=== PATIENT | female | born 1960 | race Caucasian/White ===

== ENCOUNTER 2018-02-07 09:00 | Inpatient (IN) | payer OTHER ==
[2018-02-21] MEDS ORDERED: LR 1,000 ML IV ONE (06:03)
[2018-02-21] MEDS ORDERED: BUPIVACAINE/EPI 0.5% 30 ML SDV ONE (06:38)
[2018-02-21] MEDS ORDERED: SURGIFLO MATRIX KIT WITH THROMBIN 8 ML TP ONE (06:38)
[2018-02-21] MEDS ORDERED: BACITRACIN 50,000 UNITS/10 ML SYR IRR ONE (06:39)
[2018-02-21] MEDS ORDERED: ceFAZolin 2 GM/DEXTROSE 100 ML IV ONE (06:46)
[2018-02-21] MEDS ORDERED: GABAPENTIN 300 MG CAP PO ONE (06:46)
[2018-02-21] MEDS ORDERED: ACETAMINOPHEN 500 MG TAB PO ONE (06:46)
[2018-02-21] MEDS ORDERED: TRANEXAMIC ACID 1,000 MG in NS 100 ML IV ONE (06:46)
--- NOTE | 2018-02-21 06:48 | PDHPUP ---
History & Physical Update H&P update statement: This history and physical update is based on an assessment of the patient which was completed after admission or registration (within 24 hours), but prior to the surgery/procedure. H&P update: H&P reviewed & patient examined, no change in patient's condition since H&P completed
[2018-02-21] MEDS ORDERED: MIDAZOLAM 2 MG/2 ML VIAL IVP ONE (06:54)
--- NOTE | 2018-02-21 06:54 | PDANEPAE ---
ANE History of Present Illness Mainly left sided flank pain ANE Past Medical History - Cardiovascular History Hx Hypertension: Yes Hx Arrhythmias: No Hx Chest Pain: No Hx Coronary Artery / Peripheral Vascular Disease: No Hx CHF / Valvular Disease: No Hx Palpitations: No - Pulmonary History Hx COPD: No Hx Asthma/Reactive Airway Disease: Yes Hx Recent Upper Respiratory Infection: No Hx Oxygen in Use at Home: No Hx Sleep Apnea: No Sleep Apnea Screening Result - Last Documented: Positive Pulmonary History Comment: allergies trigger asthma - Neurologic History Hx Cerebrovascular Accident: No Hx Seizures: No Hx Dementia: No - Endocrine History Hx Diabetes: No - Renal History Hx Renal Disorders: No - Liver History Hx Hepatic Disorders: No - Neurological & Psychiatric Hx Hx Neurological and Psychiatric Disorders: No - Cancer History Hx Cancer: No - Congenital Disorder History Hx Congenital Disorders: No - GI History Hx Gastrointestinal Disorders: Yes Gastrointestinal History Comment: reflux - Other Health History Other Health History: none - Chronic Pain History Chronic Pain: Yes (lower back) - Surgical History Prior Surgeries: none ANE Review of Systems Review of Systems: - Exercise capacity METS (RN): 4 METS - Systems Respiratory: Reports: other (asthma, takes advair inhaler 2x daily) ANE Patient History - Allergies Allergies/Adverse Reactions: No Known Allergies Allergy (Verified 01/24/18 13:20) - Home Medications Home medications: home medication list seen and reviewed Home Medications: Fluticasone/Salmeter 250/50Mcg [Advair 250/50 (*)] 1 puffs IH BID 01/24/18 [ Last Taken 02/20/18] Hydrochlorothiazide [HCTZ (*)] 25 mg PO DAILY 01/24/18 [Last Taken 02/21/18] Ibuprofen [Motrin (*)] 200 mg PO DAILY PRN 01/24/18 [Last Taken 1 Week Ago ~04/30] Levothyroxine [Synthroid 50 mcg (*)] 50 mcg PO DAILY06 01/24/18 [Last Taken 11/30] Losartan Potassium 100 mg PO DAILY 01/24/18 [Last Taken 02/20/18] Magnesium Oxide [Magnesium Oxide 400 mg (*)] 400 mg PO HS 01/24/18 [Last Taken 2 Days Ago ~02/19/18] Metoprolol Succinate Xr [Toprol Xl 50 mg (*)] 50 mg PO DAILY 01/24/18 [Last Taken 02/21/18] Multivitamins [Multivitamin (*)] 1 each PO DAILY 01/24/18 [Last Taken 02/20/18] - NPO status NPO Status: no food or drink >8 hours NPO Since - Liquids (Date): 02/20/18 NPO Since - Liquids (Time): 21:00 NPO Since - Solids (Date): 02/20/18 NPO Since - Solids (Time): 21:00 - Anes Hx Anes Hx: no prior problems (no prior GA, previously had spinal anesthetic ) - Smoking Hx Smoking Status: Never smoked - Family Anes Hx Family Hx Anesthesia Complications: none ANE Labs/Vital Signs - Vital Signs Blood Pressure: 157/99 Heart Rate: 83 Respiratory Rate: 14 O2 Sat (%): 92 Height: 162.56 cm Weight: 70.307 kg ANE Physical Exam - Airway Neck exam: FROM Mallampati Score: Class 1 Mouth exam: normal dental/mouth exam - Pulmonary Pulmonary: no respiratory distress - Cardiovascular Cardiovascular: regular rate and rhythym - ASA Status ASA Status: II ANE Anesthesia Plan Anesthesia Plan: general endotracheal anesthesia (planned remifentanil and propofol infusion with volatile, no NMB due to neuromonitoring, scopolamine patch given in preop for Hx motion sickness and risk of PONV)
[2018-02-21] MEDS ORDERED: MIDAZOLAM 2 MG/2 ML VIAL ONE (06:55)
[2018-02-21] MEDS ORDERED: SCOPOLAMINE HYDROBROMIDE 1 MG/3 DAYS PATCH TD ONE (06:55)
[2018-02-21] MEDS ORDERED: SCOPOLAMINE HYDROBROMIDE 1 MG/3 DAYS PATCH TD SCH (07:00)
[2018-02-21] MEDS ORDERED: PROPOFOL 200 MG/20 ML VIAL ONE (07:05)
[2018-02-21] MEDS ORDERED: fentaNYL 100 MCG/2 ML INJ ONE ×2 (07:05→10:04)
[2018-02-21] MEDS ORDERED: PROPOFOL/EMULSION 500 MG/50 ML BOTTLE IV ONE (07:05)
[2018-02-21] MEDS ORDERED: REMIFENTANIL HCL 1 MG VIAL ONE (07:05)
[2018-02-21] MEDS ORDERED: DEXAMETHASONE 4 MG/ML VIAL ONE (07:47)
[2018-02-21] MEDS ORDERED: ROCURONIUM 50 MG/5 ML VIAL ONE (07:48)
[2018-02-21] MEDS ORDERED: LIDOCAINE 2% 5 ML SDV ONE (07:48)
[2018-02-21] MEDS ORDERED: ePHEDrine SULFATE 25 MG/5 ML SYR ONE (08:58)
[2018-02-21] MEDS ORDERED: ONDANSETRON 4 MG/2 ML VIAL IVP PRN ×2 (09:20→10:16)
[2018-02-21] MEDS ORDERED: PROMETHAZINE HCL 25 MG/ML INJ IVP PRN (09:20)
[2018-02-21] MEDS ORDERED: NALOXONE HCL 0.4 MG/ML INJ IVP PRN (09:20)
[2018-02-21] MEDS: fentaNYL 100 MCG/2 ML INJ IVP PRN ×2 (10:06→10:12)
--- NOTE | 2018-02-21 10:07 | POSTANESTH ---
Post Anesthetic Evaluation Cardiovascular Status: Similar to Pre-Op Cond Respiratory Status: Similar to Pre-op Cond. Level of Consciousness/Mental Status: Alert and Oriented Pain Control: Adequate, Prn Tx Ordered Nausea/Vomiting Control: Adequate, Prn Tx Ordered Complications Possibly Related to Anesthesia: None Noted
[2018-02-21] MEDS ORDERED: BISACODYL 10 MG SUPP PR PRN (10:16)
[2018-02-21] MEDS ORDERED: LACTULOSE 20 GM/30 ML UDCUP PO PRN (10:16)
[2018-02-21] MEDS ORDERED: MAGNESIUM HYDROXIDE 30 ML UDCUP PO PRN (10:16)
[2018-02-21] MEDS ORDERED: ONDANSETRON DISINTEGRATING 4 MG TAB PO PRN (10:16)
[2018-02-21] MEDS ORDERED: diphenhydrAMINE 25 MG CAP PO PRN (10:16)
[2018-02-21] MEDS ORDERED: POLYETHYLENE GLYCOL 3350 17 GM PKT PO PRN (10:16)
[2018-02-21] MEDS ORDERED: HYDROmorphONE/DILAUDID 2 MG/ML INJ ONE (10:19)
[2018-02-21] MEDS: HYDROmorphONE/DILAUDID 2 MG/ML INJ IVP PRN ×2 (10:24→10:42)
--- NOTE | 2018-02-21 10:27 | SUROPNOTE ---
[facility] Operative Report - Surgery Date: 02/21/18 Pre-operative Diagnoses: L4/5 Degenerative disc disease and spondylosis L4/5 Degenerative spondylolisthesis Bilateral L4/5 pars insufficiency fractures Lumbar spinal stenosis Post-operative Diagnosis: Same Procedures: Lt L4/5 Minimally invasive extreme lateral interbody fusion (XLIF) L4/5 Anterior column plate and screw fixation Rt L4/5 Minimally Invasive Posterior Lumbar Fusion with Instrumentation Reduction of bilateral L4 pars insufficiency fractures Structural use of allograft Use of intra-operative fluoroscopy Use of intra-operative neuromonitoring, including MEP, EMG and SSEP modalities Surgeon: Juan Briceno MD Assist: Saranya Rojas Anesthesia: General endotracheal anesthesia Findings: As expected spondylolisthesis, spinal stenosis, facet hypertrophy Estimated Blood Loss: 20mL Drains: None Specimens: None Complications: None Condition: Transferred to PACU in stable condition Implants: NuVasive XLIF Cage: 8mm x 10deg x 16 Anterior Column Plate: Modulus cage-incorporated plate Anterior Screws: 50mm x 1 Posterior Pedicle Screws: 6.5mm x 45mm x2 Fernando: 35mm Allograft: 5mL allograft used structurally in the disc space and interbody cage Indications: This patient was seen in my office and diagnosed with degenerative spondylolisthesis and spinal stenosis. I have explained all options of treatment for the patient, and the patient has elected to proceed with operative management. I have explained all risks, benefits, and alternatives of the proposed procedure. The risks that we have discussed include , blindness, nerve damage, infection, dural tear, failure of surgery to alleviate pre-operative symptoms, nonunion, and possible need for further operation. I explained separately the risks of allograft, including infection and disease transfer. I specifically discussed the additional risks of XLIF, including but not limited to vascular damage, femoral nerve radiculopathy, or weakness. In addition to the aforementioned procedure, I discussed with the patient that other procedures may be indicated during the course of surgery that would be considered in the patients best interest. The patient expressed understanding of this and agreed to move forward with operative management. Pre-operative: The proposed incision lateral and posterior sites were marked in the pre- operative holding area by me. The patient was then taken to the operating room in stable condition. Following smooth induction of general anesthesia, the patient was positioned in a lateral decubitus position on a flat OR table with all down surfaces well-padded. The patient was then prepped and draped in the usual sterile fashion. Pre-operative antibiotics were administered within one hour of the incision. A surgical timeout was performed, and all parties involved in the procedure were in agreement on the correct patient, location, and procedure to be performed. Level localization and spinal pause: After the table was broken to allow for appropriate access to the L4/5 disk space, x-rays were taken to make sure that the operative disc space was properly marked out. Once the disk space was marked out from a lateral approach , a local anesthetic with epinephrine was injected into~the area and approximately a 4cm incision was then made over the side overlying the disk directly lateral to it. Subdermal fat was then explored and moved aside. The external and internal oblique muscles were then dissected bluntly using finger and Metzenbaum scissors. The retroperitoneal space was then entered using manual palpation. The transverse process and the~disk space of the operative level was palpated. A wire was then placed into the operative disc space and confirmed on both AP and lateral radiographs. Serial dilators were~then placed in position here to allow for an XLIF retractor. The XLIF retractor was then placed over the operative disk space. This was again confirmed~by AP and lateral radiographs and then a nerve detection system was used to ensure that the lumbar plexus was not violated. Placement of XLIF interbody cage, reduction of spondylolisthesis and bilateral pars insufficiency fractures: ~A posterior jalyn was then placed into the posterior third of the L4 and L5 vertebral body and retracted forward or~anteriorly. The disk L4/5 space was then incised and the annulus fibrosis was removed. Serial disk preparation tools including a Kong curette, box cutters, #5 Kerrison and pituitary rongeur was used to prep the disk space. This was also flushed several times to ensure that the disk space~was empty of any remaining debris. At this time, a trial was then placed and~the appropriately sized cage was selected. The cage was~ then packed with 5 mL of allograft bone and this was gently malleted in place~ and again confirmed by both AP and lateral radiographs. The business center representative was then removed. Attention was then turned towards the plate placement. At this~time, an anterior column plate was then placed laterally over the cage itself. Screw holes were then drilled into both the cephalad and caudal vertebrae levels. Appropriately-sized screws were then placed into both vertebrae with just enough purchase for a bicortical bite within the vertebral body. Again, radiographs confirmed both placement of the graft and the screws. The spondylolisthesis and bilateral L4 pars insufficiency fractures were noted to be reduced. At this time, all monitoring was noted to be stable. Closure of lateral incision: Attention was then turned towards closure. Several #1 Vicryl sutures were used to reapproximate the fascia overlying the oblique muscles. A 2-0 Monocryl sutures were then used to repair the subcutaneous tissues and a 4-0 Monocryl was used to repair the skin. Glue was then used over the top of this and this surgical site was then~sealed completely. Patient transfer: The patient was then carefully transferred to a Neo table, and positioned prone with all down surfaces well-padded. The patient was then prepped and draped in the usual sterile fashion. A second surgical timeout was performed, and all parties involved in the procedure were in agreement on the correct patient, location, and procedure to be performed. Pedicle screw placement: All pedicle screws were placed in a percutaneous fashion. Using biplanar fluoroscopy, a Jamshidi needle was gently malleted into place at the appropriate pedicle screw starting position at the lateral border of the facet on the AP view and mid-point of the pedicle on lateral view. The needle was advanced just past the pedicle into the vertebral body. At this point, a neurostimulating probe was attached to the end of the needle and the potentials were noted to be above 20 milliamps. The central trocar was then removed, and a blunt K-wire was passed into the cannulated pedicle. The Jamshidi was then removed completely, with the K-wire anchored in the vertebral body. A tap was then used up to a size that was 1mm below the final screw size based on pre- operative templating. An appropriately-sized screw was placed at each level and confirmed fluoroscopically. 6.5x45mm screws were placed at L4 and L5 in this fashion. All screws were then stimulated. Each screw was stimulated and potentials were all above 20 milliAmps. Fernando and set screw placement: At this time, associated tulip heads were placed into the screws with associated reduction towers. Using a percutaneous fernando passer, an appropriately- sized fernando was then placed into the pedicle screw heads with ample fernando extending from either end. To ensure that the rods were appropriately positioned, three checks were performed: the rods were visually inspected, the insertion handle was torqued and both towers were visualized to move, and a lateral radiograph was taken to ensure an appropriate length to the rods. At this point, a lateral radiograph was taken and reduction of the vertebral insufficiency fractures was noted. Of note, there were no changes in the SSEP and EMG monitoring during this maneuver. Set screws were then placed into the cephalad pedicle screws over the rods, and all set screws were tensioned using a torque-limited screwdriver. Closure: The surgical field was then copiously irrigated with sterile saline. A small drain was placed deep to the fascia and brought out of the skin superior and laterally. The drain was then sewn to skin. #1 vicryl suture were used to repair the fascia in an interrupted fashion. Then 2-0 interrupted sutures were used to repair the dermal layer, and a separate 3-0 monofilament suture was used to repair the subcutaneous layer in a running fashion. All sutures used were absorbable. Topical adhesive was then applied to the skin and allowed to dry. A sterile island dressing was applied over the surgical incision. A surgical count was performed before initiation of closure and following the procedure, and all were correct. I was present for the entire procedure. Neuromonitoring: SSEP, MEP and EMG were used throughout the case from incision until the beginning of closure. There were no significant changes throughout the case, and SSEP signals were at their pre-surgical baseline levels before surgical closure was initiated. scheduling assistant: A surgical appliance fitter was used throughout the case, and deemed necessary for safe neural retraction, hemostasis, and suction. Recovery: The patient was extubated uneventfully in the operating room. The patient was taken to the recovery room in stable condition. Sequential compression devices for VTE prophylaxis were applied to the patients lower extremities, and were ordered to be used while the patient was non-ambulatory. Chemical VTE prophylaxis was considered to be contraindicated for this patient because of the risk of bleeding near the epidural space. Juan Briceno MD
[2018-02-21] MEDS ORDERED: DIAZEPAM 5 MG/ML 1 ML SYR ONE (10:51)
[2018-02-21] MEDS ORDERED: DIAZEPAM 5 MG/ML 1 ML SYR IVP ONE ×2 (11:15→11:30)
[2018-02-21] MEDS: oxyCODONE IR 5 MG TAB PO PRN ×2 (12:57→23:16)
[2018-02-21] MEDS: ACETAMINOPHEN 500 MG TAB PO SCH ×2 (12:57→22:11)
[2018-02-21] MEDS: ceFAZolin 2 GM/DEXTROSE 100 ML IV SCH ×2 (12:58→23:13)
--- NOTE | 2018-02-21 16:33 | PDMN ---
Medical Necessity Medical necessity: Pt meets inpt criteria per MD order and [facility] [place] S-820, Lumbar Fusion, IP only list. 57 y/o w/degen disc disease and spondylosis, spinal stenosis, spondylolosthesis, and bilat L4/5 pars insufficiency fx's, admitted for surg: L4/5 XLIF, posterior lumbar fusion w/instrumentation, and reduction of bilat L4 pars insufficiency fx's.
[2018-02-21] MEDS: FAMOTIDINE 20 MG TAB PO SCH (22:10)
[2018-02-21] MEDS: SENNOSIDES/DOCUSATE SODIUM TAB PO SCH (22:10)
[2018-02-22 05:05] LABS: PLATELET COUNT 225 10^3/uL (150-400)
[2018-02-22] MEDS: ACETAMINOPHEN 500 MG TAB PO SCH (06:13)
[2018-02-22 07:33] VITALS: BP 88/49
[2018-02-22] MEDS: oxyCODONE IR 5 MG TAB PO PRN (09:45)
[2018-02-22] MEDS: SENNOSIDES/DOCUSATE SODIUM TAB PO SCH (09:45)
[2018-02-22] MEDS: FAMOTIDINE 20 MG TAB PO SCH (09:45)
--- NOTE | 2018-02-22 13:39 | ASMTLACE ---
LACE Length of stay for Answers: 2 days current admission Acuity / Level of Answers: Yes Care: Did the patient have an inpatient admission? Comorbidities - select Answers: Opioid dependence all that apply / Chronic pain Other Notes: HTN # of Emergency department Answers: 0 visits in the last 6 months Score: 10 Date Signed: 02/22/2018 01:38 PM Electronically Signed By:ED Morgan
--- NOTE | 2018-02-22 13:40 | ASMTCMCOM ---
CM Note CM Note Notes: Pt had planned surgery, resides with spouse. PT rec home/outpatient. No CM d/c needs identified. Date Signed: 02/22/2018 01:39 PM Electronically Signed By:ED Morgan
--- NOTE | 2018-02-22 17:45 | GDS ---
The patient underwent a left L4-5 XLIF followed by a MIS posterior spinal fusion of L4-L5 on 02/21/19 19 without complication. She did extremely well following the operation. Her pain was well controll ed on an oral regimen. She did not have any abnormal vital signs, and she progressed well with physi cat therapy. She was subsequently cleared for discharge home on postop day 1. The patient has been prescribed medications. She has also been given a pre-surgical booklet which sh ould answer the majority of her questions. She also has my cell phone if she has any further concern s. In short, she is to wear the brace for a total of 6 weeks whenever she is up and around. She can discontinue the brace 1 day after leaving the hospital, and I would like to see her in my office at 2 weeks' time. /[id number]/MODL
--- NOTE | 2018-02-22 22:11 | GPROG ---
I saw and evaluated Tanvi this morning. Overall she is doing quite well. She notices relief of the l eg pain that she was having before the operation. PHYSICAL EXAMINATION: She is neurologically intact. She has no sensory, motor, or vascular deficits . The dressings are clean, dry, and intact and left in place. I think Tanvi is safe to go home today following some evaluation with physical therapy. I will see he r in 2 weeks' time. /[id number]/MODL
[2018-02-24] MEDS ORDERED: PATCH REMOVAL 1 EA PATCH TD SCH (06:55)
== END 2018-02-22 11:47 | disposition home or self-care (01) | DRG 460 ==
LOC: F3N 02-21 05:50
PROVIDERS: ADMIT Orthopaedic Surgery Orthopaedic Surgery of the Spine; ATTEND Orthopaedic Surgery Orthopaedic Surgery of the Spine
PROC: 4A1004G Monitoring of Central Nervous Electrical Activity, Intraoperative, Open Approach (ICD-10-PCS; principal; 2018-02-21 07:15)
PROC: 0SG00A0 Fusion of Lumbar Vertebral Joint with Interbody Fusion Device, Anterior Approach, Anterior Column, Open Approach (ICD-10-PCS; principal; 2018-02-21 07:15)
PROC: 8E0WXBZ Computer Assisted Procedure of Trunk Region (ICD-10-PCS; principal; 2018-02-21 07:15)
DX: M48.062 Spinal stenosis, lumbar region with neurogenic claudication (principal); M84.48XA Pathological fracture, other site, initial encounter for fracture; M43.16 Spondylolisthesis, lumbar region; I10 Essential (primary) hypertension; G47.30 Sleep apnea, unspecified; J45.998 Other asthma; K21.9 Gastro-esophageal reflux disease without esophagitis
CPT/HCPCS: 97161-GP; 97165-GO; C1713; C1762; J0690; J1100; J1170; J2250; J2704; J3010; J3360